=== PATIENT | female | born 1980 | race Caucasian/White ===

== ENCOUNTER → 2020-05-15 | Outpatient (CLI) | payer OTHER | LOC: RAD 08:40 | DX: M17.11 Unilateral primary osteoarthritis, right knee (principal) ==

== ENCOUNTER 2021-02-06 07:55 | Outpatient (RCR) | payer OTHER | END 2021-05-07 | disposition still patient (30) | LOC: PT | DX: G89.29 Other chronic pain (principal); Z79.899 Other long term (current) drug therapy ==

== ENCOUNTER → 2021-07-30 | Outpatient (CLI) | payer OTHER ==
[~2021-07-30] MED LIST: KLONOPIN 1MG1 MG PO; ZOLOFT 50MG50 MG PO
== END ==
LOC: LAB 10:21
DX: G89.29 Other chronic pain (principal)

== ENCOUNTER 2021-09-11 18:40 | Emergency (ER) | payer OTHER ==
[~2021-09-11] VITALS: Ht 162.6 cm; Wt 61.4 kg
[2021-09-11 19:41] LABS: BASO # 0.02 K/mm3 (0.02-0.10); EOS # 0.02 K/mm3 (0.04-0.40); EOS % 0.2 % (1.0-5.0); HEMATOCRIT 38.1 % (37.0-47.0); HEMOGLOBIN 13.6 g/dL (12.5-16.0); LYMPH# 2.25 K/mm3 (1.50-4.00); MEAN CELL VOLUME 87 fl (78-100); MEAN CORPUSCULAR HEMOGLOBIN 31 pg (27-31); MEAN CORPUSCULAR HGB CONC 36 g/dL (33-37); MEAN PLATELET VOLUME 9.2 fl (7.4-10.4); MONO # 0.85 K/mm3 (0.20-0.80); NEU # 7.55 K/mm3 (1.40-6.50); PLATELET COUNT 323 K/mm3 (130-400); RED BLOOD COUNT 4.36 M/mm3 (4.10-5.30); RED CELL DISTRIBUTION WIDTH 11.1 % (11.5-14.5); WHITE BLOOD COUNT 10.7 K/mm3 (4.8-10.8)
[2021-09-11 19:53] LABS: ALBUMIN 4.5 g/dL (3.5-5.0)
[2021-09-11 19:54] LABS: POTASSIUM 3.8 mmol/L (3.5-5.1)
[2021-09-11 19:55] LABS: CALCIUM 9.6 mg/dL (8.3-10.5)
[2021-09-11 19:56] LABS: TOTAL PROTEIN 7.8 g/dL (6.4-8.3)
[2021-09-11 19:58] LABS: TOTAL BILIRUBIN 0.9 mg/dL (0.2-1.2)
[2021-09-11] MEDS ORDERED: KLONOPIN 1MG1 MG PO (21:00)
[2021-09-11] MEDS ORDERED: ZOLOFT 50MG50 MG PO (21:00)
[2021-09-11 22:11] VITALS: BP 106/73
== END 2021-09-11 22:11 | disposition home or self-care (01) ==
LOC: ED 18:40
PROVIDERS: Physician Assistant
DX: F41.9 Anxiety disorder, unspecified (principal); E87.1 Hypo-osmolality and hyponatremia; Z20.822 Contact with and (suspected) exposure to COVID-19
CPT/HCPCS: J2060; J7030

== ENCOUNTER 2023-05-15 20:24 | Emergency (ER) | payer BC ==
[2023-05-15 22:15] LABS: BASO # 0.01 K/mm3 (0.02-0.10); EOS # 0.01 K/mm3 (0.04-0.40); EOS % 0.1 % (1.0-5.0); HEMATOCRIT 35.3 % (37.0-47.0); HEMOGLOBIN 12.2 g/dL (12.5-16.0); LYMPH# 2.81 K/mm3 (1.50-4.00); MEAN CELL VOLUME 87 fl (78-100); MEAN CORPUSCULAR HEMOGLOBIN 30 pg (27-31); MEAN CORPUSCULAR HGB CONC 35 g/dL (33-37); MONO # 0.69 K/mm3 (0.20-0.80); NEU # 6.82 K/mm3 (1.40-6.50); PLATELET COUNT 294 K/mm3 (130-400); RED BLOOD COUNT 4.04 M/mm3 (4.10-5.30); RED CELL DISTRIBUTION WIDTH 11.6 % (11.5-14.5); WHITE BLOOD COUNT 10.4 K/mm3 (4.8-10.8)
[2023-05-15 22:31] LABS: ALBUMIN 4.4 g/dL (3.5-5.0)
[2023-05-15 22:32] LABS: POTASSIUM 3.4 mmol/L (3.5-5.1)
[2023-05-15 22:33] LABS: CALCIUM 9.7 mg/dL (8.3-10.5)
[2023-05-15 22:34] LABS: SODIUM 130 mmol/L (136-145)
[2023-05-15 22:35] LABS: CARBON DIOXIDE 18 mmol/L (22-29)
[2023-05-15 22:36] LABS: GLUCOSE 115 mg/dL (65-105); TOTAL BILIRUBIN 0.6 mg/dL (0.2-1.2); TOTAL PROTEIN 6.8 g/dL (6.4-8.3)
[2023-05-15 22:41] LABS: ALT/SGPT 69 U/L (0-55); AST-SGOT 67 U/L (5-34)
[2023-05-15 22:43] LABS: LIPASE 23 U/L (8-78)
[2023-05-15 22:55] LABS: TROPONIN-I < 0.030 ng/mL (<0.030)
[2023-05-15 23:14] LABS: PH-URINE 8.5 (5.0 - 8.0); URINE APPEARANCE CLEAR; URINE BILIRUBIN NEGATIVE (NEGATIVE); URINE BLOOD NEGATIVE (NEGATIVE); URINE COLOR YELLOW; URINE GLUCOSE NEGATIVE (NEGATIVE); URINE KETONE NEGATIVE (NEGATIVE); URINE LEUKOCYTE ESTERASE TRACE (NEGATIVE); URINE NITRATE NEGATIVE (NEGATIVE); URINE PROTEIN(semi-quant) NEGATIVE (NEGATIVE); URINE UROBILINOGEN NORMAL (NORMAL); URINE WBC 0-1 /hpf (0-3)
[2023-05-16 02:15] VITALS: BP 127/69
== END 2023-05-16 02:20 | disposition home or self-care (01) ==
LOC: ED 20:24
PROVIDERS: Family Medicine
DX: R07.89 Other chest pain (principal); F41.9 Anxiety disorder, unspecified; R06.4 Hyperventilation; Z28.310 Unvaccinated for COVID-19
CPT/HCPCS: J1885; J2060; Q9967